=== PATIENT | male | born 1955 | race Caucasian/White ===

== ENCOUNTER 2020-03-10 09:30 | Emergency (ER) | payer MEDICARE, OTHER ==
[~2020-03-10] VITALS: Ht 177.8 cm; Wt 102.1 kg
[2020-03-10 11:09] VITALS: BP 142/104
== END 2020-03-10 11:10 | disposition home or self-care (01) ==
LOC: ER 09:30
DX: N40.0 Benign prostatic hyperplasia without lower urinary tract symptoms (principal); R33.9 Retention of urine, unspecified; Z90.49 Acquired absence of other specified parts of digestive tract